=== PATIENT | female | born 1995 | race Caucasian/White ===

== ENCOUNTER 2018-09-24 03:16 | Emergency (ER) | payer OTHER ==
[2018-09-24] MEDS: IBUPROFEN 600 MG TAB PO (04:17)
== END 2018-09-24 05:11 | disposition home or self-care (01) ==
LOC: E/R 05:11
DX: S13.9XXA Sprain of joints and ligaments of unspecified parts of neck, initial encounter (principal); X58.XXXA Exposure to other specified factors, initial encounter; Y92.9 Unspecified place or not applicable
CPT/HCPCS: 72125; 81025; 99284-25